=== PATIENT | male | born 1995 | race Caucasian/White ===

== ENCOUNTER 2018-03-14 14:17 | Emergency (ER) | payer OTHER ==
[2018-03-14] MEDS ORDERED: TORADOL IM ONE (15:44)
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
--- NOTE | 2018-03-14 17:59 | XRay Report ---
FINAL REPORT EXAM: XR SPINE THORACIC 2V HISTORY: back injury TECHNIQUE: AP and lateral views of thoracic spine. PRIORS: None. FINDINGS: No loss of height or gross malalignment of thoracic vertebral bodies. No obvious osseous destruction. Thoracic disc spaces maintained. Paraspinal soft tissues grossly unremarkable. IMPRESSION: 1. No acute osseous abnormality.
--- NOTE | 2018-03-14 18:00 | XRay Report ---
FINAL REPORT EXAM: XR SPINE LUMBOSACRAL 2-3V HISTORY: back injury TECHNIQUE: AP and lateral views of lumbar spine. PRIORS: None. FINDINGS: No loss of height or gross malalignment of lumbar vertebral bodies. No obvious osseous destruction. Lumbar disc spaces maintained. Paraspinal soft tissues grossly unremarkable. IMPRESSION: 1. No acute osseous abnormality.
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
[2018-03-14 18:45] VITALS: BP 132/72
== END 2018-03-14 18:44 | disposition home or self-care (01) ==
LOC: ED 14:17
DX: S39.012A Strain of muscle, fascia and tendon of lower back, initial encounter (principal); S29.012A Strain of muscle and tendon of back wall of thorax, initial encounter; W01.198A Fall on same level from slipping, tripping and stumbling with subsequent striking against other object, initial encounter; Y93.89 Activity, other specified; Y92.89 Other specified places as the place of occurrence of the external cause; Y99.8 Other external cause status
CPT/HCPCS: 72070; 72100; 96372; 99283; J1885